=== PATIENT | female | born 1950 | race Hispanic/Latino ===

== ENCOUNTER 2023-09-15 10:42 | Inpatient (IN) | payer MEDICARE ==
[~2023-09-15 10:42] MED LIST: Iopamidol 300 61% 100 ML VIAL FS ONE
[2023-09-15 11:32] LABS: #Basophils 0.1 10x3/uL (0.0-0.2); #Eosinphils 0.1 10x3/uL (0.0-0.5); #Monocytes 0.7 10x3/uL (0.0-1.1); #Neutrophils 6.4 10x3/uL (1.5-8.4); %Basophils 0.8 % (0.0-2.0); %Eosinophils 0.9 % (0.0-6.0); %Lymphocytes 28.3 % (18.0-47.0); %Neutrophils 62.6 % (40.0-75.0); Hematocrit 40.6 % (34.9-44.5); Hemoglobin 13.4 g/dL (12.0-15.5); Mean Corpuscular Hemoglobin 29.8 pg (27.0-33.0); Mean Corpuscular Volume 90.4 fl (81.6-98.3); Mean Platelet Volume 10.8 fl (7.4-10.4); Platelet Count 179 10x3/uL (150-450); RBC Distribution Width 13.4 % (11.5-14.5); Red Blood Cell (RBC) Count 4.49 10x6/uL (3.90-5.03); White Blood Cell (WBC) Count 10.2 10x3/uL (3.5-10.5)
[2023-09-15 11:38] LABS: ALT (SGPT) 12 U/L (8-55); AST (SGOT) 17 U/L (5-34); Albumin 4.1 g/dL (3.4-4.8); Alkaline Phosphatase 73 U/L (40-110); Anion Gap 14 mmol/L (10-20); BUN (Urea Nitrogen) 14 mg/dL (9.8-20.1); Bilirubin, Total 0.6 mg/dL (0.2-1.2); Calc. Creatinine Clearance 0 mL/min (70-130); Calcium 8.8 mg/dL (7.8-10.44); Carbon Dioxide 20 mmol/L (23-31); Chloride 110 mmol/L (98-107); Estimated GFR 74; Globulin 3.4 g/dL (2.4-3.5); Glucose 110 mg/dL (83-110); Protein, Total 7.5 g/dL (5.8-8.1); Sodium 140 mmol/L (136-145)
[2023-09-15 11:47] LABS: Critical Call Chem Troponin I ERS.CP1 @1146; Troponin I 0.223 ng/mL (< 0.028)
[2023-09-15 12:11] LABS: SARS-CoV-2 NAA Rapid Test Not Detected (NotDetected)
[2023-09-15] MEDS ORDERED: Enoxaparin 100 MG (1 mL) SYRINGE ONE (12:56)
[2023-09-15] MEDS ORDERED: Aspirin 325 MG TAB ONE (12:56)
[2023-09-15] MEDS ORDERED: Acetaminophen 650 MG Suppository PR PRN (13:34)
[2023-09-15] MEDS ORDERED: Nitroglycerin 0.4 MG TAB (25 Tab Bottle) SL PRN (13:35)
[2023-09-15] MEDS ORDERED: Heparin 10,000 UNITS/ 10 ML VIAL SLOW IVP SCH ×2 (14:15→14:45)
[2023-09-15] MEDS ORDERED: Heparin 25,000 units/D5W 500 ML IVPB SCH (14:15)
[2023-09-15 14:54] LABS: Hematocrit 42.3 % (34.9-44.5); Hemoglobin 14.1 g/dL (12.0-15.5); Platelet Count 186 10x3/uL (150-450)
[2023-09-15 15:07] LABS: INR-International Normal Ratio 1.1; Prothrombin Time 11.9 sec (9.5-12.1)
[2023-09-15 15:11] VITALS: BMI 48.6
[2023-09-15] MEDS ORDERED: Heparin 25,000 units/D5W 500 ML ONE (15:21)
[2023-09-15 15:23] LABS: Troponin I 0.201 ng/mL (< 0.028)
[2023-09-15] MEDS: Heparin 25,000 units/D5W 500 ML IV SCH (15:30)
[2023-09-15 17:43] LABS: Troponin I 0.165 ng/mL (< 0.028)
[2023-09-15] MEDS: Famotidine 20 MG TAB PO SCH (21:59)
[2023-09-15] MEDS: Atorvastatin Calcium 40 MG TAB PO SCH (21:59)
[2023-09-15] MEDS: Famotidine/PF 20 mg/2ml Vial SLOW IVP SCH (22:02)
[2023-09-16 03:40] LABS: #Basophils 0.1 10x3/uL (0.0-0.2); #Eosinphils 0.2 10x3/uL (0.0-0.5); #Monocytes 0.7 10x3/uL (0.0-1.1); %Basophils 0.9 % (0.0-2.0); %Eosinophils 1.6 % (0.0-6.0); %Lymphocytes 30.1 % (18.0-47.0); %Monocytes 6.8 % (0.0-10.0); %Neutrophils 60.3 % (40.0-75.0); Hematocrit 39.3 % (34.9-44.5); Hemoglobin 13.2 g/dL (12.0-15.5); Mean Corpuscular HGB CONC 33.6 g/dL (32.0-36.0); Mean Corpuscular Hemoglobin 30.7 pg (27.0-33.0); Mean Corpuscular Volume 91.4 fl (81.6-98.3); Mean Platelet Volume 11.1 fl (7.4-10.4); Platelet Count 173 10x3/uL (150-450); RBC Distribution Width 13.5 % (11.5-14.5); White Blood Cell (WBC) Count 9.9 10x3/uL (3.5-10.5)
[2023-09-16 04:06] LABS: Anion Gap 16 mmol/L (10-20); BUN (Urea Nitrogen) 12 mg/dL (9.8-20.1); Calc. Creatinine Clearance 131 mL/min (70-130); Calcium 8.7 mg/dL (7.8-10.44); Carbon Dioxide 19 mmol/L (23-31); Cardiac Risk 3.2 (Less than 4.5); Chloride 110 mmol/L (98-107); Cholesterol 137 mg/dl (< 200 Desired); Estimated GFR 87; Glucose 109 mg/dL (83-110); HDL Cholesterol 43 mg/dL (>60 Neg Risk); INR-International Normal Ratio 1.1; LDL Cholesterol, Calculated 80 mg/dL; Potassium 3.8 mmol/L (3.5-5.1); Prothrombin Time 12.1 sec (9.5-12.1); Sodium 141 mmol/L (136-145); Triglycerides 69 mg/dL (Less than 150)
[2023-09-16] MEDS: FLU VACC QS2023(65UP)/MF59C/PF 60 MCG/0.5 ML SYRINGE IM ONE (08:52)
[2023-09-16] MEDS: HYDROcodone/Acetaminophen 5/325 mg Tablet PO PRN (08:58)
[2023-09-16] MEDS: Aspirin 81 mg Enteric Coated Tablet PO SCH (08:58)
[2023-09-17 05:53] LABS: #Basophils 0.1 10x3/uL (0.0-0.2); #Eosinphils 0.3 10x3/uL (0.0-0.5); #Monocytes 0.5 10x3/uL (0.0-1.1); #Neutrophils 6.1 10x3/uL (1.5-8.4); %Basophils 0.6 % (0.0-2.0); %Eosinophils 3.1 % (0.0-6.0); %Lymphocytes 25.3 % (18.0-47.0); %Monocytes 5.4 % (0.0-10.0); %Neutrophils 65.2 % (40.0-75.0); Hematocrit 40.6 % (34.9-44.5); Hemoglobin 13.2 g/dL (12.0-15.5); Mean Corpuscular HGB CONC 32.5 g/dL (32.0-36.0); Mean Corpuscular Hemoglobin 29.5 pg (27.0-33.0); Mean Corpuscular Volume 90.6 fl (81.6-98.3); Mean Platelet Volume 10.8 fl (7.4-10.4); Platelet Count 176 10x3/uL (150-450); RBC Distribution Width 13.4 % (11.5-14.5); Red Blood Cell (RBC) Count 4.48 10x6/uL (3.90-5.03); White Blood Cell (WBC) Count 9.4 10x3/uL (3.5-10.5)
[2023-09-17 06:22] LABS: Anion Gap 16 mmol/L (10-20); Calc. Creatinine Clearance 116 mL/min (70-130); Calcium 9.1 mg/dL (7.8-10.44); Carbon Dioxide 22 mmol/L (23-31); Chloride 106 mmol/L (98-107); Estimated GFR 75; Glucose 103 mg/dL (83-110); Potassium 3.8 mmol/L (3.5-5.1); Sodium 140 mmol/L (136-145)
[2023-09-17 06:54] LABS: BUN (Urea Nitrogen) 21 mg/dL (9.8-20.1)
[2023-09-17] MEDS: Acetaminophen 325 MG TAB PO PRN (08:13)
[2023-09-17] MEDS ORDERED: Benzonatate 100 MG CAP PO PRN (08:26)
[2023-09-17 15:02] LABS: Hemoglobin 14.1 g/dL (12.0-15.5); Platelet Count 178 10x3/uL (150-450)
[2023-09-17] MEDS: Guaifenesin DM 100-10/5 ML UDCUP PO PRN (15:03)
[2023-09-17 16:32] VITALS: BP 143/76; TEMP 98.5
== END 2023-09-17 17:21 | disposition home or self-care (01) | DRG 175 ==
LOC: CSHERS 10:42 → CSHERHOLD 13:01 → CSHTELE 21:13
PROVIDERS: ADMIT Family Medicine; ATTEND Family Medicine
DX: I26.09 Other pulmonary embolism with acute cor pulmonale (principal); J96.01 Acute respiratory failure with hypoxia; I50.31 Acute diastolic (congestive) heart failure; I21.A1 Myocardial infarction type 2; Z68.42 Body mass index [BMI] 45.0-49.9, adult; E66.01 Morbid (severe) obesity due to excess calories; R53.81 Other malaise; Z88.0 Allergy status to penicillin; Z82.49 Family history of ischemic heart disease and other diseases of the circulatory system; Z83.3 Family history of diabetes mellitus; Z88.1 Allergy status to other antibiotic agents; Z11.52 Encounter for screening for COVID-19
CPT/HCPCS: 36415; 71045; 71275; 80048; 80053; 80061; 83880; 84484; 85025; 85379; 85610; 85730; 93005; 93306; 93970; 94760; 94762; 96372; J1644; J1650; Q9967

== ENCOUNTER 2023-10-02 15:50 | Emergency (ER) | payer MEDICARE ==
[2023-10-02 17:03] LABS: #Basophils 0.1 10x3/uL (0.0-0.2); #Eosinphils 0.1 10x3/uL (0.0-0.5); #Monocytes 1.1 10x3/uL (0.0-1.1); #Neutrophils 10.7 10x3/uL (1.5-8.4); %Basophils 0.4 % (0.0-2.0); %Eosinophils 0.4 % (0.0-6.0); %Lymphocytes 13.5 % (18.0-47.0); %Monocytes 7.6 % (0.0-10.0); %Neutrophils 77.6 % (40.0-75.0); Hematocrit 40.1 % (34.9-44.5); Hemoglobin 13.3 g/dL (12.0-15.5); Mean Corpuscular HGB CONC 33.2 g/dL (32.0-36.0); Mean Corpuscular Hemoglobin 29.3 pg (27.0-33.0); Mean Corpuscular Volume 88.3 fl (81.6-98.3); Mean Platelet Volume 10.7 fl (7.4-10.4); Platelet Count 250 10x3/uL (150-450); RBC Distribution Width 13.4 % (11.5-14.5); Red Blood Cell (RBC) Count 4.54 10x6/uL (3.90-5.03); White Blood Cell (WBC) Count 13.8 10x3/uL (3.5-10.5)
[2023-10-02] MEDS ORDERED: Acetaminophen 325 MG TAB ONE (17:07)
[2023-10-02 17:16] LABS: ALT (SGPT) 19 U/L (8-55); AST (SGOT) 18 U/L (5-34); Albumin 3.8 g/dL (3.4-4.8); Alkaline Phosphatase 68 U/L (40-110); Anion Gap 16 mmol/L (10-20); BUN (Urea Nitrogen) 17 mg/dL (9.8-20.1); Calc. Creatinine Clearance 0 mL/min (70-130); Calcium 9.3 mg/dL (7.8-10.44); Carbon Dioxide 20 mmol/L (23-31); Chloride 105 mmol/L (98-107); Estimated GFR 73; Globulin 3.6 g/dL (2.4-3.5); Glucose 102 mg/dL (83-110); Potassium 3.6 mmol/L (3.5-5.1); Protein, Total 7.4 g/dL (5.8-8.1); Sodium 137 mmol/L (136-145)
== END 2023-10-02 18:51 | disposition home or self-care (01) ==
LOC: CSHERS 15:50
DX: M25.531 Pain in right wrist (principal); L03.116 Cellulitis of left lower limb
CPT/HCPCS: 36415; 80053; 85025; 86140